=== PATIENT | female | born 1965 ===

== ENCOUNTER 2017-12-03 11:54 | Outpatient (CLI) | payer OTHER ==
[~2017-12-03] VITALS: Ht 165.1 cm; Wt 60.3 kg
== END 2017-12-03 12:15 | disposition home or self-care (01) ==
LOC: OFIC 805 11:54
DX: H92.01 Otalgia, right ear (principal); H90.41 Sensorineural hearing loss, unilateral, right ear, with unrestricted hearing on the contralateral side; H69.81 Other specified disorders of Eustachian tube, right ear

== ENCOUNTER 2017-12-17 12:18 | Outpatient (CLI) | payer OTHER ==
[~2017-12-17] VITALS: Ht 152.4 cm; Wt 60.3 kg
== END 2017-12-17 12:35 | disposition home or self-care (01) ==
LOC: OFIC 805 12:18
DX: H69.83 Other specified disorders of Eustachian tube, bilateral (principal); H92.03 Otalgia, bilateral; J30.89 Other allergic rhinitis